=== PATIENT | female | born 1960 | race Caucasian/White ===

== ENCOUNTER 2022-10-13 20:46 | Emergency (ER) | payer BC, SELFPAY ==
[2022-10-13 20:54] VITALS: BP 164/83; PULSE 100; RESP 20; TEMP 36.8; O2SAT 100
[2022-10-13 21:16] VITALS: BP 134/78; PULSE 97; RESP 20
[2022-10-13 21:26] LABS: Basophils Absolute Auto 0.1 K/mm3 (0.0-0.1); Basophils Percent Auto 0.6 % (0.2-1.2); Eosinophils Absolute Auto 0.1 K/mm3 (0-0.3); Eosinophils Percent Auto 1.1 % (0-4.4); Hematocrit 45.4 % (37.0-47.0); Hemoglobin 15.6 g/dL (12.0-15.0); Immature Granulocyte Absolute 0.04 K/mm3 (0.00-0.031); Immature Granulocyte Percent A 0.4 % (0-0.5); Lymphocytes Percent Auto 36.7 % (18.3-44.2); Mean Corpuscular HGB Conc 34.4 g/dl (32-36); Mean Corpuscular Hemoglobin 30.3 pg (26-34); Mean Corpuscular Volume 88.2 fl (80-100); Monocytes Absolute Auto 0.5 K/mm3 (0.1-0.6); Monocytes Percent Auto 5.2 % (2.6-8.5); Platelet Count Result 203 k/mm3 (150-375); Red Blood Count 5.15 M/mm3 (4.2-5.4); Red Cell Distribution Width 12.3 % (11.5-14.5)
[2022-10-13] MEDS: SODIUM CHLORIDE 0.9% IV 1,000 ML 999 ML IV CONT (21:28)
[2022-10-13] MEDS: diphenhydrAMINE HCl INJ 50 MG/ML VIAL 25 MG IV PUSH (21:29)
[2022-10-13] MEDS: ONDANSETRON INJ 4 MG/2 ML VIAL IV PUSH (21:29)
[2022-10-13] MEDS: METOCLOPRAMIDE HCL INJ 10 MG/2 ML VIAL IV PUSH (21:29)
[2022-10-13 21:40] LABS: Alanine Aminotransferase 27 U/L (6-35); Albumin Level 4.5 g/dL (3.5-5.1); Alkaline Phosphatase 102 U/L (38-126); Anion Gap 7 mmol/L (8-16); Aspartate Amino Transferase 30 U/L (14-36); Bilirubin,Total 0.5 mg/dL (0.2-1.3); Blood Urea Nitrogen 16 mg/dL (7-17); Calcium 9.5 mg/dL (8.4-10.2); Carbon Dioxide 27 mmol/L (22-30); Chloride 103 mmol/L (98-107); Estimated CRCL calculation 69 ml/min; Estimated Glomerular Filt Rate > 60; Glucose 149 mg/dL (65-110); Potassium 3.7 mmol/L (3.4-5.0); Sodium 137 mmol/L (137-145)
--- NOTE | 2022-10-13 22:10 | ED.GENADULT ---
HPI - General Adult General Chief complaint: Dizziness Stated complaint: Dizziness and vomiting Time Seen by Provider: 10/13/22 21:02 History of Present Illness HPI narrative: 62-year-old female presented to the emergency department for evaluation of dizziness with associated nausea and vomiting. Patient reports that she did not have very much food to eat today. Patient states she did have a 10 mg THC edible at 6 PM. Patient also had alcohol on epic stomach prior to dinner. Patient states after eating dinner she had onset of worsening nausea vomiting dizziness. Patient arrived to the emergency department by EMS. Patient denies any prior history of vertigo. Patient states that she had no associated headache numbness or weakness. Patient denies any significant past medical history. Related Data Allergies Allergy/AdvReac Type Severity Reaction Status Date / Time No Known Allergies Allergy Verified 10/13/22 20:57 Review of Systems Review of Systems: CONSTITUTIONAL: Denies fever, chills, or sweats. EYES: Denies visual changes, redness, or discharge. ENT: Denies rhinorrhea, congestion, sore throat, or otalgia. CARDIOVASCULAR: Denies chest pain, palpitations, or edema. RESPIRATORY: Denies cough or dyspnea. GASTROINTESTINAL: See HPI GENITOURINARY: Denies dysuria or hematuria. SKIN: Denies rash or itching. MUSCULOSKELETAL: Denies back pain, joint pain, or myalgia. NEUROLOGIC: Vertigo PSYCHIATRIC: Denies anxiety or depression. Exam Narrative: APPEARANCE: Well appearing, no pain, no distress, well-nourished. HEAD: normocephalic, atraumatic. EYES: PERRLA/EOMI, conjunctivae clear. NOSE: Normal no drainage NECK: Supple. No adenopathy, no masses. RESPIRATORY: Airway patent, respirations nonlabored. Clear to auscultation bilaterally, no rales, rhonchi, wheezing. CARDIOVASCULAR: Regular rate and rhythm without murmurs rubs or gallops. ABDOMINAL: Soft, nontender, nondistended, normal bowel sounds MUSCULOSKELETAL: Moves all extremities. Strength/ROM intact, No edema, No calf tenderness. NEURO: No ataxia, no drift, normal comprehensive neuro exam SKIN: Warm, dry. Normal Color PSYCHIATRIC: Normal affect/mood. Course Course Emergency Course: After treatment with IV fluids, IV Benadryl, IV Zofran and p.o. meclizine patient states she does feel improved. Patient's nausea vomiting is resolved and patient is resting comfortably. Patient states that her vertigo/dizziness has improved. Patient was able to ambulate Emergency Department without issue. Patient was advised of close follow-up with her primary care physician. Patient was also advised to avoid combination of alcohol and THC. Suspected etiology of her vertigo was interaction between THC and alcohol on an empty stomach. With a normal neuro exam and improvement of her symptoms CVA or central vertigo was less likely. Patient was comfortable with the plan for discharge to home and close follow-up. All patient's concerns were addressed. Patient was well-appearing at time of discharge. Vital Signs Vital signs: Vital Signs Temperature 98.2 F 10/13/22 20:54 Pulse Rate 100 10/13/22 20:54 Respiratory Rate 20 10/13/22 20:54 Blood Pressure 164/83 H 10/13/22 20:54 Pulse Oximetry 100 10/13/22 20:54 Oxygen Delivery Room Air 10/13/22 20:54 Temperature 98.2 F 10/13/22 20:54 Pulse Rate 82 10/13/22 23:05 Respiratory Rate 18 10/13/22 23:05 Blood Pressure 130/82 10/13/22 23:05 Pulse Oximetry 100 10/13/22 23:05 Oxygen Delivery Room Air 10/13/22 20:54 Medical Decision Making Vital Signs Vital Signs: Vital Signs Temperature 98.2 F 10/13/22 20:54 Pulse Rate 100 10/13/22 20:54 Respiratory Rate 20 10/13/22 20:54 Blood Pressure 164/83 H 10/13/22 20:54 Pulse Oximetry 100 10/13/22 20:54 Oxygen Delivery Room Air 10/13/22 20:54 Temperature 98.2 F 10/13/22 20:54 Pulse Rate 82 10/13/22 23:05 Respiratory Rate 18 10/13/22 23:05
[2022-10-13] MEDS: MECLIZINE HCL 25 MG TABLET PO (22:21)
[2022-10-13 23:05] VITALS: BP 130/82; PULSE 82; RESP 18; O2SAT 100
== END 2022-10-13 23:07 | disposition home or self-care (01) ==
PROVIDERS: Emergency Provider Emergency Medicine
DX: T51.0X1A Toxic effect of ethanol, accidental (unintentional), initial encounter (principal); T40.711A Poisoning by cannabis, accidental (unintentional), initial encounter; R42 Dizziness and giddiness; R11.2 Nausea with vomiting, unspecified
CPT/HCPCS: 36415; 80053; 85025; 96361; 96374; 96375; 99284; A9270; J1200; J2405; J2765; J7030